=== PATIENT | female | born 1935 | race Caucasian/White ===

== ENCOUNTER 2016-12-21 16:54 | Inpatient (IN) | payer MEDICARE, OTHER ==
--- NOTE | ~2016-12-21 | OP ---
Record Of Operation [facility] [address] [place]. [address] NAME: KIMO DUTTON : 37 STATUS : ADM Yadira PAT#: [id number] AGE: 81 ADM/REG DATE : 12/21/16 MR#: [id number] REPORT SERV DATE: 12/25/16 DICTATED BY: BOB ALBRECHT II DATE: 12/25/16 REPORT STATUS : Draft TRANSCRIBED BY: MODL DATE: 12/25/16 DATE OF PROCEDURE: 12/23/2016 PREOPERATIVE DIAGNOSES: 1. Right lower extremity severe radiculopathy. 2. 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 3. Degenerative scoliosis. POSTOPERATIVE DIAGNOSES: 1. Right lower extremity severe radiculopathy. 2. 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 3. Degenerative scoliosis. PROCEDURES: 1. Lumbar laminectomy and facetectomy at L3-4, L4-5. 2. Posterolateral arthrodesis, L3-4 and L4-5. 3. Posterior segmental instrumentation, L3-4 and L4-5. 4. Use of local autograft, allograft substitute, and bone morphogenic protein. 5. Use of the microscope and stereotactic spinal imaging. SURGEON: Bob Albrecht M.D. FLUIDS: 1 L lactated Ringer's. ESTIMATED BLOOD LOSS: 100 mL. DRAINS: One drain. COMPLICATIONS: None. PREOPERATIVE HISTORY: This is a friendly 81-year-old female, who has been having severe pain especially in the last three weeks, but started approximately five weeks ago. She fell and the pain became intensely worse down the buttock and leg. She has had very limited mobility secondary to severe pain. Her friend Murphy notified us, and wanted us to see her. We saw her, and based upon her intractable pain, she was admitted for pain control and likely surgical intervention. Her CAT scan was pushed from [place] to [facility] so that we could evaluate the CT scan ourself. This showed a very large amount of stenosis at L4-5 with a large herniation on the right side, most likely came from L4-5. There was a chance that came down from L3-4. It felt that it would require a fairly aggressive removal of the facet and already somewhat unstable area from a degenerative scoliosis standpoint. L3-4 also exhibited some degree of stenosis, and I was suspicious she may require surgery up to the L3 4. I discussed with her and her the surgery, and the risks and benefits and the overall recovery, and she wished to proceed. DESCRIPTION OF PROCEDURE: After informed consent was obtained, the patient was brought to the operating room at her request, and general anesthesia was achieved. She was placed in Record Of Operation [address] [place]. [address] NAME: KIMO DUTTON : 37 STATUS : ADM Yadira PAT#: [id number] AGE: 81 ADM/REG DATE : 12/21/16 MR#: [id number] REPORT SERV DATE: 12/25/16 DICTATED BY: BOB ALBRECHT II DATE: 12/25/16 REPORT STATUS : Draft TRANSCRIBED BY: MADDISON DATE: 12/25/16 prone position, and the back was prepped and draped in a sterile fashion. The intraoperative CT scan was completed and the stereotactic guidance was used throughout the case. Next, the minimally invasive incision was performed on the right at L3-4 and L4-5. The soft tissue was removed from the interlaminar spaces and the quadrant retractor was placed. The transverse processes were dissected upon at L4 and L5. At this point, I still was not certain that L3-4 would need to be included. At this point, the microscope was brought into place, and under microscopic visualization, the facetectomy was performed at L4-5. The ligamentum flavum was removed. The dura was then well-decompressed. At this point, we then evaluated the L4 nerve root. The L4 nerve root was extremely edematous. The L5 nerve root appeared minimally edematous. We decompressed the L5 nerve root, and then turned our attention back to the L4 nerve root. Again, it was extremely edematous, but we were able to ascertain that the large herniation was compressing the nerve root in the foramen, but also mostly at the origin and takeoff point from the sac. At this point, I did not feel that we were able to adequately visualize the fragment entirely. We were using some retraction on the nerve root and the sac. At this point, we were able to remove some small fragments, but I did not believe we were able to get the entire fragment. At this point, we then worked up to the L3-4 level, and removed the facet itself, this allowed decompression of the L3-4 canal and then to identify the L4 nerve root at this level. An additional fragment was removed, and this was a larger fragment. At this point, I was pleased with the decompression. The area was irrigated copiously. At this point, the pedicle screws were applied bilaterally. Three screws were placed on the right and two on the left percutaneously. A repeat CT scan confirmed acceptable placement of the implants and the rods were then well-placed and final tightening performed. At this point, following confirmation of the appropriate placement, we then decorticated the transverse processes of L3, L4, and L5 on the right side. Local autograft, allograft substitute, and bone morphogenic protein were then placed along the decorticated surfaces. A deep drain was placed, and standard closure was performed, and the patient was extubated and transferred to the PACU in stable condition. MONICA/MADDISON Bob Albrecht II, M.D. / [id number] CC: Tawny Walker II, M.D.
--- NOTE | ~2016-12-21 | HP ---
History And Physical [place] [address] [facility] [place]. [address] NAME: KIMO LUI : 37 STATUS : ADM Yadira PAT#: [id number] AGE: 81 ADM/REG DATE : 12/21/16 MR#: [id number] REPORT SERV DATE: 12/22/16 DICTATED BY: BOB ALBRECHT II DATE: 12/22/16 REPORT STATUS : Draft TRANSCRIBED BY: MODAlex DATE: 12/22/16 DATE OF ADMISSION: 12/21/2016 HISTORY OF PRESENT ILLNESS: Mrs. Lui is a 81-year-old patient who was seen in our office yesterday on 12/21/2016 as a new patient working on due to severe intractable right lower extremity pain. She had a CT of the lumbar spine with IV contrast on 12/13/2016, which showed a large L4-L5 disk herniation with severe stenosis. She had planned to see another Spine Surgery later in the month, but she fell on Sunday evening at home due to, she believes, balance issues after being on the pain medication and decided that she could not wait that long to be seen. She was then worked in to see us yesterday and was direct admitted from the office due to severity of the pain. She reports that her pain initially began in September and was initially diagnosed as a bursitis. However, on 11/27/2016, she was stepping out of an SUV and missed the bottom step to get out and kind of ila her body there, and that is when the more severe right leg pain developed. She denies very much low back pain at all. PAST MEDICAL HISTORY: Includes hemorrhoids, asthma, high cholesterol, and migraines. PAST SURGICAL HISTORY: Includes a right TKA in 2003 and a left TKA in 04/2016. She had a right lumpectomy due to breast cancer. She has had cataract surgery and three sinus surgeries in 1999. She had a pacemaker placed for bradycardia. ALLERGIES: TO ALL NSAIDS. FAMILY HISTORY: She reports that both of her parents from strokes. MEDICATIONS: List includes [id number]-mkklzrp calcium, melatonin, multivitamins, Restasis, Valium as needed, Robaxin as needed, and Nucynta as needed. PHYSICAL EXAMINATION: GENERAL: She is not in any acute distress. NEUROLOGIC: Awake, alert, and oriented x3. Bilateral lower extremity DTRs intact, except for a dropped reflex at the right patella. Her right lower extremity pain follows an L4 dermatomal distribution. 5/5 lower extremity motor strength. RESPIRATORY: Unlabored on room air. ABDOMEN: Soft. Nontender. GENITOURINARY: She is voiding. SKIN: She does have a left black eye from her recent fall. ASSESSMENT: Right lower extremity intractable radicular pain, large herniated nucleus pulposus with stenosis at L4-L5. PLAN: The plan will be to do an L4-5 minimally invasive facetectomy and fusion. The risks and benefits discussed with the patient and her spouse, and she is willing to proceed due to the severity of the pain. She will most likely require rehab placement due to social situation of being in the middle of selling her house and eventually moving into [address] [id number] NAME: KIMO LUI : 37 STATUS : ADM Yadira PAT#: [id number] AGE: 81 ADM/REG DATE : 12/21/16 MR#: [id number] REPORT SERV DATE: 12/22/16 DICTATED BY: BOB ALBRECHT II DATE: 12/22/16 REPORT STATUS : Draft TRANSCRIBED BY: MADDISON DATE: 12/22/16 [facility]. She has complained of constipation today, so we will start medication for that. We will also make medication adjustments to better manage pain. We will attempt to transfer her to [facility] today under a full admission. Surgery will be planned for some time this weekend pending scheduling. DICTATED BY: Tawny Walker II/MADDISON Bob Albrecht II, M.D. / [id number] CC: Tawny Walker II, M.D.
--- NOTE | ~2016-12-21 | DS ---
Discharge Summary [facility] [address] [place]. [address] NAME: KIMO DUTTON : 37 STATUS : DIS IN PAT#: [id number] AGE: 81 ADM/REG DATE : 12/23/16 MR#: [id number] REPORT SERV DATE: 01/02/17 DICTATED BY: BOB ALBRECHT II DATE: 01/01/17 REPORT STATUS : Draft TRANSCRIBED BY: MADDISON DATE: 01/01/17 Data Collection from hospitalization DISCHARGE DIAGNOSES: 1. Right lower extremity severe radiculopathy. 2. Severe stenosis L3-4, L4-5. 3. Degenerative scoliosis. 4. Asthma. 5. Hypercholesterolemia. 6. History of migraines. CONSULTATIONS: None. PROCEDURES PERFORMED: 1. Lumbar laminectomy and facetectomy, L3-4, L4-5. 2. Posterolateral arthrodesis, L3-L4, L4-L5. 3. Posterior segmental instrumentation, L3-4 L4-5. 4. Use of local autograft, allograft substitute, and bone morphogenetic protein. 5. Use of the microscope and stereotactic spinal imaging, 12/23/2016. PATHOLOGY: Spine, lumbar bone and tissue, fibrocartilage consistent with intervertebral disk, benign bone fragments with degenerative changes. MEDICATIONS: Citracal one daily, Restasis one drop each eye twice daily, Colace 100 mg twice daily, Neurontin 300 mg three times a day, melatonin 5 mg at bedtime, multiple vitamin without minerals one daily, Tylenol 650 mg every four hours as needed, Mylanta 30 mL as needed, Dulcolax 10 mg rectally as needed, Dulcolax 15 mg orally as needed, Valium 5 mg every 6 hours as needed, Robaxin 750 mg every four hours as needed, milk of magnesia 30 mL twice daily as needed, Fleet enema rectally as needed, Ultram 50 mg to 100 mg every four hours as needed, Roxicodone 10 to 20 mg every three hours as needed. CONDITION AT DISCHARGE: Upon discharge, she did appear to be doing well and had no complaints. DISPOSITION: She was discharged with transfer to [facility] to continue a regular diet with activity as discussed. She was to follow up with me as directed. HOSPITAL COURSE: This 81-year-old female was seen in the office on 12/21/2016 as a new patient due to severe intractable right lower extremity pain. She had a CT of the lumbar spine with IV contrast on 12/13/2016 which showed a large L4-L5 disk herniation with severe stenosis. She had planned to see another spine surgery later in the month, but she fell on Sunday evening at home due to she believes balance issues after being on the pain medication and decided that she could not wait that long to be seen. She was then worked in to see us and was directly admitted from the office due to severity of the pain. She reported that her pain initially began in September and was initially diagnosed as a bursitis. However, on 11/27/2016, she was stepping out of an SUV and missed the bottom step to get out and kind of ila her body there and that was when more severe right leg pain developed. She denied very much low back pain at all. She was admitted for further evaluation and Discharge Summary [address] [place]. [address] NAME: KIMO DUTTON : 37 STATUS : DIS IN PAT#: [id number] AGE: 81 ADM/REG DATE : 12/23/16 MR#: [id number] REPORT SERV DATE: 01/02/17 DICTATED BY: BOB ALBRECHT II DATE: 01/01/17 REPORT STATUS : Draft TRANSCRIBED BY: MADDISON DATE: 01/01/17 treatment. Upon admission to the hospital, she had been placed on a regular diet, to be n.p.o. after midnight. She was begun on Dilaudid at 1 to 2 mg IV every six hours as needed, Percocet 10/325 one or two every six hours as needed, Valium 2 mg IV or orally every six hours as needed, Zofran 4 mg IV every six hours as needed, Neurontin 100 mg three times daily. She was initially admitted as an observation on 12/21/2016, and then changed to inpatient status on 12/23/2016. Following the day of admission which was 12/22/2016, she did appear to be doing well and had no complaints. Surgery had been discussed with the patient. She was agreeable to proceed. On 12/23/2016, she had been taken to the operating room where she did undergo the above procedure. She tolerated this well and was transferred to the recovery room. On postop day #1, she did appear to be doing well and stated that she had no leg pain. She did have complaints of the typical postoperative low back pain. She was afebrile and her vital signs were stable. She was evaluated by Physical Therapy. On postop day #2, she did have some leg pain. However, she was not taking any pain medications. She also complained of low back pain. Her Neurontin was increased, and she was continued on physical therapy. On postop day 3, she did remain in stable condition, and as she continued to do well, she was then discharged with the above instructions. Information collected by: Kady SouzaILisa. I submit the above information as my discharge summary. BENTON/MADDISON Bob Albrecht II, M.D. / [id number] CC: Tawny Walker II, M.D. [facility]
[~2016-12-21 16:54] MED LIST: CENTRUM TAB1 TAB PO; DEPLIN7.5 MG PO; GLUCOSAMINE SULFATE PO; MAGNESIUM PO; MOBIC7.5 PO; PCET PO; SOMATAB PO; V120 PO
[2016-12-21 17:48] LABS: BASOPHILS 0.1 %; BASOPHILS ABSOLUTE 0.01 10/3/uL (0.0-0.16); EOSINOPHILS 0.5 %; EOSINOPHILS ABSOLUTE 0.04 10/3/uL (0.0-0.53); HEMATOCRIT 44.8 % (36.0-48.0); HEMOGLOBIN 14.8 g/dL (12.0-16.0); IMMATURE GRANULOCYTES 0.7 %; IMMATURE GRANULOCYTES ABSOLUTE 0.06 10/3/uL (0.0-0.11); LYMPHOCYTES 20.5 %; LYMPHOCYTES ABSOLUTE 1.69 10/3/uL (0.67-4.30); MEAN CORPUSCULAR VOLUME 90.9 fL (80-100); MEAN PLATELET VOLUME 9.1 fL (9.2-13.0); MONOCYTES ABSOLUTE 0.74 10/3/uL (0.21-1.20); NEUTROPHILS 69.2 %; NEUTROPHILS ABSOLUTE 5.69 10/3/uL (2.02-8.40); RBC DISTRIBUTION WIDTH 14.2 % (12.0-16.0); RED CELL COUNT 4.93 10/6/uL (4.0-5.6); WHITE BLOOD CELLS 8.2 10/3/uL (4.5-10.5)
[2016-12-21 17:50] LABS: MANUAL DIFF NO %; PLATELET COUNT 368 10/3/uL (150-400)
[2016-12-21 18:01] LABS: A/G RATIO 1.1 (0.7-1.9); ALKALINE PHOSPHATASE 101 U/L (45-117); CALCIUM, SERUM 9.5 MG/DL (8.5-10.4); CHLORIDE, SERUM 104 MMOL/L (96-112); CO2 (CARBON DIOXIDE) 32 MMOL/L (24-34); CREATININE 1.04 MG/DL (0.55-1.02); GFR AFRICAN AMERICAN 59 ML/MIN (>=60); GFR NON AFRICAN AMERICAN 51 ML/MIN (>=60); GLOBULIN 3.7 G/DL (2.5-4.1); POTASSIUM, SERUM 4.1 MMOL/L (3.5-5.3); SGOT(AST) 16 U/L (5-40); SGPT(ALT) 28 U/L (5-65); SODIUM, SERUM 140 MMOL/L (135-148); TOTAL BILIRUBIN 0.3 MG/DL (0-1.2); TOTAL PROTEIN 7.7 G/DL (6.0-8.5)
[2016-12-21 18:03] LABS: BUN (BLOOD UREA NITROGEN) 35 MG/DL (6-23); GLUCOSE, SERUM 92 MG/DL (60-99)
[2016-12-21] MEDS ORDERED: RESTASIS OPH (21:49)
[2016-12-21] MEDS ORDERED: CITRACAL PO (21:49)
[2016-12-21] MEDS ORDERED: MELATONIN5 M1 PO (21:50)
[2016-12-21] MEDS ORDERED: MULTIPLE VIT PO (21:50)
[2016-12-21] MEDS ORDERED: NUCYNTA100 MG PO (22:01)
[2016-12-21] MEDS ORDERED: V5 PO (22:02)
[2016-12-21] MEDS ORDERED: METHOC750B PO (22:04)
== END 2016-12-26 12:57 | DRG 460 ==
LOC: CDU2 16:54 → 3SO 12-22 16:46
PROVIDERS: Orthopaedic Surgery
PROC: 0SG1071 Fusion of 2 or more Lumbar Vertebral Joints with Autologous Tissue Substitute, Posterior Approach, Posterior Column, Open Approach (ICD-10-PCS; principal; 2016-12-21)
PROC: 4A11X4G Monitoring of Peripheral Nervous Electrical Activity, Intraoperative, External Approach (ICD-10-PCS; 2016-12-21)
DX: M51.16 Intervertebral disc disorders with radiculopathy, lumbar region (principal)
CPT/HCPCS: 80053; 82962; 85025; 87641; 88304; 88311; 93005; 97116-GP; 97161-GP; A9270-GY; C1713; C1768; G8978-CJ-GP; G8979-CH-GP; J0690; J1170; J2405; J2710; J3010; J3370